=== PATIENT | male | born 1955 | race African-American/Black ===

== ENCOUNTER 2017-10-17 14:26 | Inpatient (IN) | payer OTHER ==
[2017-10-17 18:34] VITALS: BMI 23.7
--- NOTE | 2017-10-17 21:45 | HP ---
COWS - Scale Resting Pulse: 1= [place] 81-100 Sweatin=Flushed/Facial Moisture Restless Observation: 1= Difficult to Sit Still Pupil Size: 0= Normal to Room Light Bone or Joint Aches: 4=Acute Joint/Muscle Pain Runny Nose/ Eye Tearin= Runny Nose/Eyes GI Upset > 30mins: 3= Vomiting/Diarrhea (diarrhea x 2, no vomiting) Tremor Observation: 2= Slight Tremor Visible Yawning Observation: 2= >3x During Session Anxiety or Irritability: 2=Irritable/Anxious Goose Flesh Skin: 0=Smooth Skin COWS Score: 19 Admission ROS [facility] - [facility] Chief Complaint: Heroin withdrawal symptoms Allergies/Adverse Reactions: Allergies Allergy/AdvReac Type Severity Reaction Status Date / Time No Known Allergies Allergy Verified 10/17/17 20:42 History of Present Illness: 62 years old male with a long history of heroin dependence is admitted to detox. Patient states that he was in detox 20 years ago at [facility] and reports seven years of sobriety. He denies suicidal ideation at this time. He has medical history of anemia, pneumonia, depression and anxiety disorder. Exam Limitations: No Limitations - Ebola screening Have you traveled outside of the country in the last 21 days: No Have you had contact with anyone from an Ebola affected area: No Have you been sick,other than usual withdrawal symptoms: No Do you have a fever: No - Review of Systems Constitutional: Chills, Loss of Appetite, Malaise, Night Sweats, Changes in sleep, Weakness EENT: reports: Nose Congestion, Sinus Pressure Respiratory: reports: No Symptoms reported Cardiac: reports: No Symptoms Reported GI: reports: Diarrhea (x 2), Poor Appetite, Poor Fluid Intake : reports: No Symptoms Reported Musculoskeletal: reports: Back Pain, Joint Pain, Muscle Pain, Muscle Weakness Integumentary: reports: Flushing Neuro: reports: Tingling, Tremors Endocrine: reports: No Symptoms Reported Hematology: reports: Anemia Psychiatric: reports: Mood/Affect Appropiate, Orientated x3, Agitated, Anxious Other Systems: Reviewed and Negative Patient History - Patient Medical History Hx Anemia: Yes Hx Asthma: No Hx Chronic Obstructive Pulmonary Disease (COPD): No Hx Cardiac Disorders: No Hx Congestive Heart Failure: No Hx Hypertension: No Hx Hypercholesterolemia: No HX Cerebrovascular Accident: No Hx Seizures: No Hx Diabetes: No Hx Gastrointestinal Disorders: No Hx Liver Disease: No Hx Genitourinary Disorders: No Hx Sexually Transmitted Disorders: No Hx Renal Disease (ESRD): No Hx Thyroid Disease: No Hx Human Immunodeficiency Virus (HIV): No (Negative 2016) Hx Hepatitis C: No Hx Depression: Yes Hx Suicide Attempt: No Hx Bipolar Disorder: Yes Hx Schizophrenia: No - Patient Surgical History Past Surgical History: No Hx Neurologic Surgery: No Hx Cataract Extraction: No Hx Cardiac Surgery: No Hx Lung Surgery: No Hx Abdominal Surgery: No Hx Appendectomy: No Hx Cholecystectomy: No Hx Genitourinary Surgery: No Hx Section: No Hx Orthopedic Surgery: No Anesthesia Reaction: No - PPD History Previous Implant?: No (POSITIVE PPD. REQUIRES CHEST X-RAY) Implanted On Prior [facility] Admission?: No PPD to be Administered?: No - Reproductive History Patient is a Female of Child Bearing Age (11 -55 yrs old): No (MALE) - Smoking Cessation Smoking history: Current every day smoker Have you smoked in the past 12 months: Yes Aproximately how many cigarettes per day: 10 Hx Chewing Tobacco Use: No Initiated information on smoking cessation: Yes 'Breaking Loose' booklet given: 10/17/17 - Substance & Tx. History Hx Alcohol Use: No Hx Substance Use: Yes Substance Use Type: Heroin, Marijuana Hx Substance Use Treatment: Yes ([facility]) - Substances Abused Heroin Route: Inhalation Frequency: Daily Amount used: 4 bags Age of first use: 18 Date of Last Use: 10/17/17 Family Disease History - Family Disease History Family History: Denies Admission Physical Exam S - Vital Signs Vital Signs: Vital Signs - 24 hr 10/17/17 18:31 Temperature 97.6 F Pulse Rate 86 Respiratory 18 Rate Blood Pressure 150/100 - Physical General Appearance: Yes: Moderate Distress, Tremorous, Irritable, Sweating, Anxious HEENTM: Yes: EOMI, Normal ENT Inspection Respiratory: Yes: Lungs Clear, Normal Breath Sounds, No Respiratory Distress Neck: Yes: Supple Breast: Yes: Breast Exam Deferred Cardiology: Yes: Regular Rhythm, Regular Rate, S1, S2 Abdominal: Yes: Normal Bowel Sounds, Soft Genitourinary: Yes: Within Normal Limits Back: Yes: Normal Inspection Musculoskeletal: Yes: Muscle Pain, Muscle weakness Extremities: Yes: Tremors Neurological: Yes: Alert, Normal Mood/Affect, Normal Response Integumentary: Yes: Warm Lymphatic: Yes: Within Normal Limits - Diagnostic (1) Opioid dependence with withdrawal Current Visit: Yes Status: Chronic (2) Anemia Current Visit: Yes Status: Chronic Qualifiers: Anemia type: iron deficiency (3) Nicotine dependence Current Visit: Yes Status: Chronic Qualifiers: Nicotine product type: cigarettes Substance use status: uncomplicated Qualified Code(s): F17.210 - Nicotine dependence, cigarettes, uncomplicated (4) Depression Current Visit: Yes Status: Chronic Cleared for Admission [facility] - Detox or Rehab [facility] Level of Care: Medically Managed Detox Regimen/Protocol: Methadone [facility] Breath Alcohol Content Breath Alcohol Content: 0 Urine Drug Screen - Results Drug Screen Negative: No Urine Drug Screen Results: OPI-Opiates, MTD-Methadone, OXY-Oxycodone
[2017-10-17] MEDS ORDERED: MAG HYDROX/AL HYDROX/SIMETH 30 ML UNIT-DOSE CUP PO PRN (21:53)
[2017-10-17] MEDS ORDERED: MAGNESIUM CITRATE 300 ML BOTTLE PO PRN (21:53)
[2017-10-17] MEDS ORDERED: LOPERAMIDE HCL 2 MG CAPSULE PO PRN (21:53)
[2017-10-17] MEDS ORDERED: P-EPHED 60MG/TRIPROLIDI 2.5MG TABLET PO PRN (21:53)
[2017-10-17] MEDS ORDERED: METHADONE HCL 10 MG TABLET (FOR DETOX USE ONLY) PO ONE ×2 (21:53→23:00)
[2017-10-17] MEDS ORDERED: MAGNESIUM HYDROX 2400MG/30ML ORAL SUSPENSION 30 ML CUP PO PRN (21:53)
[2017-10-17] MEDS ORDERED: MENTHOL/PHENOL 1 EACH UD MM PRN (21:53)
[2017-10-17] MEDS ORDERED: IBUPROFEN 400 MG TABLET (FP) PO PRN (21:53)
[2017-10-17] MEDS ORDERED: NICOTINE POLACRILEX 2 MG GUM BC PRN (21:53)
[2017-10-17 22:59] LABS: URINE APPEARANCE CLEAR; URINE BILIRUBIN NEGATIVE (NEGATIVE); URINE BLOOD NEGATIVE (NEGATIVE); URINE COLOR DKYELLOW; URINE GLUCOSE (UA) NEGATIVE (NEGATIVE); URINE KETONE TRACE (NEGATIVE); URINE LEUK ESTERASE NEGATIVE (NEGATIVE); URINE NITRITE NEGATIVE (NEGATIVE); URINE UROBILINOGEN NEGATIVE mg/dL (0.2-1.0)
[2017-10-17 23:10] LABS: URINE PROTEIN 1+ (NEGATIVE)
[2017-10-17] MEDS: THIAMINE HCL 100 MG TABLET (FP) PO SCH (23:12)
[2017-10-17 23:16] LABS: URINE HYALINE CAST 1 /lpf; URINE MUCUS FEW
[2017-10-18] MEDS ORDERED: METHADONE HCL 10 MG TABLET (FOR DETOX USE ONLY) PO ONE (10:00)
[2017-10-18 10:06] LABS: HEMATOCRIT 34.2 % (35.4-49); HEMOGLOBIN 10.7 GM/dL (11.7-16.9); MCH 26.7 pg (25.7-33.7); MCHC 31.2 g/dl (32.0-35.9); MEAN CELL VOLUME 85.8 fl (80-96); MEAN PLT VOLUME 7.9 fl (7.5-11.1); PLATELET COUNT 310 K/MM3 (134-434); RBC 3.99 M/mm3 (4.00-5.60); RDW 13.8 % (11.9-15.9); WHITE BLOOD COUNT 6.5 K/mm3 (4.0-10.0)
[2017-10-18] MEDS: PRENATAL VITAMINS W/ FOLIC ACID TABLET (FP) PO SCH (10:38)
[2017-10-18] MEDS: NICOTINE 14 MG/24 HOURS TOPICAL PATCH TD SCH (10:38)
[2017-10-18] MEDS: diazePAM 5 MG TABLET PO PRN ×2 (10:38→22:15)
--- NOTE | 2017-10-18 11:05 | PN ---
BHS COWS - Scale Resting Pulse: 1= OR 81-100 Sweatin= Chills/Flushing Restless Observation: 3= Extraneous Movement Pupil Size: 0= Normal to Room Light Bone or Joint Aches: 4=Acute Joint/Muscle Pain Runny Nose/ Eye Tearin= Nasal Congestion GI Upset > 30mins: 1= Stomach Cramp Tremor Observation of Outstretched Hands: 1= Tremor [place], Not Seen Yawning Observation: 1= 1-2x During Session Anxiety or Irritability: 2=Irritable/Anxious Goose Flesh Skin: 0=Smooth Skin COWS Score: 15 BHS Progress Note (SOAP) Subjective: ANXIETY,SWEATS,SNEEZING,QUEEZY STOMACH. Objective: 10/18/17 11:04 Vital Signs Temperature 97.0 F L 10/18/17 09:07 Pulse Rate 85 10/18/17 09:07 Respiratory Rate 16 10/18/17 09:07 Blood Pressure 116/79 10/18/17 09:07 O2 Sat by Pulse Oximetry (%) Laboratory Last Values WBC 6.5 K/mm3 (4.0-10.0) 10/18/17 07:10 RBC 3.99 M/mm3 (4.00-5.60) L 10/18/17 07:10 Hgb 10.7 GM/dL (11.7-16.9) L 10/18/17 07:10 Hct 34.2 % (35.4-49) L 10/18/17 07:10 MCV 85.8 fl (80-96) 10/18/17 07:10 MCH 26.7 pg (25.7-33.7) 10/18/17 07:10 MCHC 31.2 g/dl (32.0-35.9) L 10/18/17 07:10 RDW 13.8 % (11.9-15.9) 10/18/17 07:10 Plt Count 310 K/MM3 (134-434) 10/18/17 07:10 MPV 7.9 fl (7.5-11.1) 10/18/17 07:10 Urine Color Dkyellow 10/17/17 22:40 Urine Appearance Clear 10/17/17 22:40 Urine pH 5.0 (5.0-8.0) 10/17/17 22:40 Ur Specific [place] 1.027 (1.001-1.035) 10/17/17 22:40 Urine Protein 1+ (NEGATIVE) H 10/17/17 22:40 Urine Glucose (UA) Negative (NEGATIVE) 10/17/17 22:40 Urine Ketones Trace (NEGATIVE) H 10/17/17 22:40 Urine Blood Negative (NEGATIVE) 10/17/17 22:40 Urine Nitrite Negative (NEGATIVE) 10/17/17 22:40 Urine Bilirubin Negative (NEGATIVE) 10/17/17 22:40 Urine Urobilinogen Negative mg/dL (0.2-1.0) 10/17/17 22:40 Ur Leukocyte Esterase Negative (NEGATIVE) 10/17/17 22:40 Urine WBC (Auto) 2 /hpf (3-5) 10/17/17 22:40 Urine RBC (Auto) 1 /hpf (0-3) 10/17/17 22:40 Hyaline Casts 1 /lpf 10/17/17 22:40 Urine Mucus Few 10/17/17 22:40 HIV 1&2 Antibody Screen Negative 10/18/17 07:00 HIV P24 Antigen Negative 10/18/17 07:00 OTHER LAB RESULTS PENDING Assessment: 10/18/17 11:05 WITHDRAWAL SX Plan: CONTINUE DETOX
[2017-10-18] MEDS ORDERED: FERROUS SO4 325 MG TABLET (FP) PO ONE (11:20)
[2017-10-18 11:37] LABS: CHLORIDE 104 mmol/L (98-107); POTASSIUM 4.1 mmol/L (3.5-5.1); SODIUM 140 mmol/L (136-145)
[2017-10-18 11:57] LABS: ALBUMIN 3.5 g/dl (3.4-5.0); ALK PHOS 68 U/L (45-117); ANION GAP 7 (8-16); BILIRUBIN,TOTAL 0.5 mg/dL (0.2-1.0); BLOOD UREA NITROGEN 11 mg/dL (7-18); CALCIUM 8.7 mg/dL (8.5-10.1); CO2 29 mmol/L (21-32); CREATININE 0.7 mg/dL (0.7-1.3); GLUCOSE,RANDOM 84 mg/dL (74-106); SGOT/AST 14 U/L (15-37); SGPT/ALT 15 U/L (12-78); TOT PROT 6.8 g/dl (6.4-8.2)
--- NOTE | 2017-10-18 13:46 | CONSULT ---
[facility] Psychiatric Consult - Data Date of interview: 10/18/17 Admission source: [facility] Identifying data: Readmission to [facility] for this 62 y/o AA male seeking detox treatment on for heroin dependence.Patient is single,a father of six,domiciled,unemployed and supported on SSI benefits. Substance Abuse History: Confirmed by patient in this interview.See details in current [facility] report : Smoking history: Current every day smoker. Have you smoked in the past 12 months: Yes. Aproximately how many cigarettes per day: 10. Hx Chewing Tobacco Use: No. Initiated information on smoking cessation: Yes. 'Breaking Loose' booklet given: 10/17/17. - Substance & Tx. History. Hx Alcohol Use: No. Hx Substance Use: Yes. Substance Use Type: Heroin, Marijuana. Hx Substance Use Treatment: Yes ([facility]). - Substances Abused. Heroin. Route: Inhalation. Frequency: Daily. Amount used: 4 bags. Age of first use: 18. Date of Last Use: 10/17/17 Medical History: Bronchial asthma and a history of positive PPD (treated as per self-report). Psychiatric History: No reported history of psychiatric hospitalizations.Patient informs of past OPD care with psychotropic medications (zoloft,seroquel,abilify).Formerly diagnosed with Anxiety Disorder and Bipolar Disorder.Mr Perla indicates that he has dropped out of psychiatric outpatient care ([facility] to [facility]).Off medications for months (three years according to patient).No reported history of suicide attempts. Physical/Sexual Abuse/Trauma History: Patient denies. Additional Comment: Urine Drug Screen Results: OPI-Opiates, MTD-Methadone, OXY- Oxycodone.Noted. Mental Status Exam - Mental Status Exam Alert and Oriented to: Time, Place, Person Cognitive Function: Grossly Intact Patient Appearance: Well Groomed Mood: Withdrawn, Hopeful Affect: Appropriate, Normal Range Patient Behavior: Fatigued, Cooperative Speech Pattern: Clear, Appropriate Voice Loudness: Normal Thought Process: Goal Oriented Thought Disorder: Not Present Hallucinations: Denies Suicidal Ideation: Denies Homicidal Ideation: Denies Insight/Judgement: Poor Sleep: Poorly, Difficulty falling asleep (requests trazodone) Appetite: Good Muscle strength/Tone: Normal Gait/Station: Normal Psychiatric Findings - Problem List ([place] 1, 2,3) (1) Opioid dependence with withdrawal Current Visit: Yes Status: Acute (2) Nicotine dependence Current Visit: Yes Status: Acute Qualifiers: Nicotine product type: cigarettes Substance use status: in withdrawal Qualified Code(s): F17.213 - Nicotine dependence, cigarettes, with withdrawal (3) Insomnia Current Visit: Yes Status: Acute - Initial Treatment Plan Initial Treatment Plan: Psychoeducation provided.Detoxification in progress.Will address insomnia with " a low dose " of trazodone at patient's request.Trazodone 25 mg po hs.Ordered.Patient is made aware of risk of priapism.Mr Perla is in agreement with this careplan.Observation.
[2017-10-18] MEDS: traZODone HCL 50 MG TABLET (FP) PO SCH (22:15)
[2017-10-18] MEDS: THIAMINE HCL 100 MG TABLET (FP) PO SCH (22:15)
--- NOTE | 2017-10-19 07:54 | EKG ---
Test Reason : Blood Pressure : / mmHG Vent. Rate : 075 BPM Atrial Rate : 075 BPM P-R Int : 206 ms QRS Dur : 078 ms QT Int : 394 ms P-R-T Axes : 073 050 054 degrees QTc Int : 439 ms NORMAL SINUS RHYTHM NORMAL ECG NO PREVIOUS ECGS AVAILABLE Confirmed by BRENNON LÓPEZ, SLAVA ([id number]) on 10/19/2017 7:53:49 AM Referred By: Confirmed By:SLAVA WILLETT MD
[2017-10-19] MEDS ORDERED: METHADONE HCL 5 MG TABLET (FOR DETOX USE ONLY) PO ONE (10:00)
[2017-10-19] MEDS: FERROUS SO4 325 MG TABLET (FP) PO SCH (10:38)
[2017-10-19] MEDS: PRENATAL VITAMINS W/ FOLIC ACID TABLET (FP) PO SCH (10:38)
[2017-10-19] MEDS: NICOTINE 14 MG/24 HOURS TOPICAL PATCH TD SCH (10:38)
[2017-10-19] MEDS: ACETAMINOPHEN 325 MG TABLET (FP) PO PRN (10:39)
--- NOTE | 2017-10-19 12:28 | PN ---
BHS COWS - Scale Resting Pulse: 1= [place] 81-100 Sweatin= Chills/Flushing Restless Observation: 3= Extraneous Movement Pupil Size: 2= Moderately Dilated Bone or Joint Aches: 4=Acute Joint/Muscle Pain Runny Nose/ Eye Tearin= Nasal Congestion GI Upset > 30mins: 0= None Tremor Observation of Outstretched Hands: 1= Tremor [place], Not Seen Yawning Observation: 2= >3x During Session Anxiety or Irritability: 2=Irritable/Anxious Goose Flesh Skin: 0=Smooth Skin COWS Score: 17 BHS Progress Note (SOAP) Subjective: ANXIETY,SWEATS,CHILLS,FATIGUE,INTERMITTENT SLEEP. Objective: 10/19/17 12:28 Vital Signs Temperature 97.9 F 10/19/17 09:54 Pulse Rate 82 10/19/17 09:54 Respiratory Rate 18 10/19/17 09:54 Blood Pressure 130/81 10/19/17 09:54 O2 Sat by Pulse Oximetry (%) Laboratory Last Values WBC 6.5 K/mm3 (4.0-10.0) 10/18/17 07:10 RBC 3.99 M/mm3 (4.00-5.60) L 10/18/17 07:10 Hgb 10.7 GM/dL (11.7-16.9) L 10/18/17 07:10 Hct 34.2 % (35.4-49) L 10/18/17 07:10 MCV 85.8 fl (80-96) 10/18/17 07:10 MCH 26.7 pg (25.7-33.7) 10/18/17 07:10 MCHC 31.2 g/dl (32.0-35.9) L 10/18/17 07:10 RDW 13.8 % (11.9-15.9) 10/18/17 07:10 Plt Count 310 K/MM3 (134-434) 10/18/17 07:10 MPV 7.9 fl (7.5-11.1) 10/18/17 07:10 Sodium 140 mmol/L (136-145) 10/18/17 07:10 Potassium 4.1 mmol/L (3.5-5.1) 10/18/17 07:10 Chloride 104 mmol/L (98-107) 10/18/17 07:10 Carbon Dioxide 29 mmol/L (21-32) 10/18/17 07:10 Anion Gap 7 (8-16) L 10/18/17 07:10 BUN 11 mg/dL (7-18) 10/18/17 07:10 Creatinine 0.7 mg/dL (0.7-1.3) 10/18/17 07:10 Creat Clearance w eGFR > 60 (>60) 10/18/17 07:10 Random Glucose 84 mg/dL (74-106) 10/18/17 07:10 Calcium 8.7 mg/dL (8.5-10.1) 10/18/17 07:10 Total Bilirubin 0.5 mg/dL (0.2-1.0) 10/18/17 07:10 AST 14 U/L (15-37) L 10/18/17 07:10 ALT 15 U/L (12-78) 10/18/17 07:10 Alkaline Phosphatase 68 U/L (45-117) 10/18/17 07:10 Total Protein 6.8 g/dl (6.4-8.2) 10/18/17 07:10 Albumin 3.5 g/dl (3.4-5.0) 10/18/17 07:10 Urine Color Dkyellow 10/17/17 22:40 Urine Appearance Clear 10/17/17 22:40 Urine pH 5.0 (5.0-8.0) 10/17/17 22:40 Ur Specific [place] 1.027 (1.001-1.035) 10/17/17 22:40 Urine Protein 1+ (NEGATIVE) H 10/17/17 22:40 Urine Glucose (UA) Negative (NEGATIVE) 10/17/17 22:40 Urine Ketones Trace (NEGATIVE) H 10/17/17 22:40 Urine Blood Negative (NEGATIVE) 10/17/17 22:40 Urine Nitrite Negative (NEGATIVE) 10/17/17 22:40 Urine Bilirubin Negative (NEGATIVE) 10/17/17 22:40 Urine Urobilinogen Negative mg/dL (0.2-1.0) 10/17/17 22:40 Ur Leukocyte Esterase Negative (NEGATIVE) 10/17/17 22:40 Urine WBC (Auto) 2 /hpf (3-5) 10/17/17 22:40 Urine RBC (Auto) 1 /hpf (0-3) 10/17/17 22:40 Hyaline Casts 1 /lpf 10/17/17 22:40 Urine Mucus Few 10/17/17 22:40 RPR Titer Nonreactive (NONREACTIVE) 10/18/17 07:10 HIV 1&2 Antibody Screen Negative 10/18/17 07:00 HIV P24 Antigen Negative 10/18/17 07:00 Assessment: 10/19/17 12:28 WITHDRAWAL SX Plan: CONTINUE DETOX
[2017-10-19] MEDS: traZODone HCL 50 MG TABLET (FP) PO SCH (22:30)
[2017-10-19] MEDS: THIAMINE HCL 100 MG TABLET (FP) PO SCH (22:30)
[2017-10-20] MEDS ORDERED: METHADONE HCL 5 MG TABLET (FOR DETOX USE ONLY) PO ONE (10:00)
[2017-10-20] MEDS: diazePAM 5 MG TABLET PO PRN (10:50)
[2017-10-20] MEDS: PRENATAL VITAMINS W/ FOLIC ACID TABLET (FP) PO SCH (10:50)
[2017-10-20] MEDS: FERROUS SO4 325 MG TABLET (FP) PO SCH (10:50)
[2017-10-20] MEDS: NICOTINE 14 MG/24 HOURS TOPICAL PATCH TD SCH (10:51)
[2017-10-20] MEDS: guaiFENesin/D-METHORPHAN HB 10 ML UNIT-DOSE CUPS PO PRN ×2 (10:52→22:37)
--- NOTE | 2017-10-20 10:56 | PN ---
BHS Progress Note (SOAP) Subjective: ANXIETY,RUNNY NOSE,DIARRHEA,INTERMITTENT SLEEP. Objective: 10/20/17 10:55 Vital Signs Temperature 97.6 F 10/20/17 09:58 Pulse Rate 97 H 10/20/17 09:58 Respiratory Rate 18 10/20/17 09:58 Blood Pressure 136/94 10/20/17 09:58 O2 Sat by Pulse Oximetry (%) Laboratory Last Values WBC 6.5 K/mm3 (4.0-10.0) 10/18/17 07:10 RBC 3.99 M/mm3 (4.00-5.60) L 10/18/17 07:10 Hgb 10.7 GM/dL (11.7-16.9) L 10/18/17 07:10 Hct 34.2 % (35.4-49) L 10/18/17 07:10 MCV 85.8 fl (80-96) 10/18/17 07:10 MCH 26.7 pg (25.7-33.7) 10/18/17 07:10 MCHC 31.2 g/dl (32.0-35.9) L 10/18/17 07:10 RDW 13.8 % (11.9-15.9) 10/18/17 07:10 Plt Count 310 K/MM3 (134-434) 10/18/17 07:10 MPV 7.9 fl (7.5-11.1) 10/18/17 07:10 Sodium 140 mmol/L (136-145) 10/18/17 07:10 Potassium 4.1 mmol/L (3.5-5.1) 10/18/17 07:10 Chloride 104 mmol/L (98-107) 10/18/17 07:10 Carbon Dioxide 29 mmol/L (21-32) 10/18/17 07:10 Anion Gap 7 (8-16) L 10/18/17 07:10 BUN 11 mg/dL (7-18) 10/18/17 07:10 Creatinine 0.7 mg/dL (0.7-1.3) 10/18/17 07:10 Creat Clearance w eGFR > 60 (>60) 10/18/17 07:10 Random Glucose 84 mg/dL (74-106) 10/18/17 07:10 Calcium 8.7 mg/dL (8.5-10.1) 10/18/17 07:10 Total Bilirubin 0.5 mg/dL (0.2-1.0) 10/18/17 07:10 AST 14 U/L (15-37) L 10/18/17 07:10 ALT 15 U/L (12-78) 10/18/17 07:10 Alkaline Phosphatase 68 U/L (45-117) 10/18/17 07:10 Total Protein 6.8 g/dl (6.4-8.2) 10/18/17 07:10 Albumin 3.5 g/dl (3.4-5.0) 10/18/17 07:10 Urine Color Dkyellow 10/17/17 22:40 Urine Appearance Clear 10/17/17 22:40 Urine pH 5.0 (5.0-8.0) 10/17/17 22:40 Ur Specific [place] 1.027 (1.001-1.035) 10/17/17 22:40 Urine Protein 1+ (NEGATIVE) H 10/17/17 22:40 Urine Glucose (UA) Negative (NEGATIVE) 10/17/17 22:40 Urine Ketones Trace (NEGATIVE) H 10/17/17 22:40 Urine Blood Negative (NEGATIVE) 10/17/17 22:40 Urine Nitrite Negative (NEGATIVE) 10/17/17 22:40 Urine Bilirubin Negative (NEGATIVE) 10/17/17 22:40 Urine Urobilinogen Negative mg/dL (0.2-1.0) 10/17/17 22:40 Ur Leukocyte Esterase Negative (NEGATIVE) 10/17/17 22:40 Urine WBC (Auto) 2 /hpf (3-5) 10/17/17 22:40 Urine RBC (Auto) 1 /hpf (0-3) 10/17/17 22:40 Hyaline Casts 1 /lpf 10/17/17 22:40 Urine Mucus Few 10/17/17 22:40 RPR Titer Nonreactive (NONREACTIVE) 10/18/17 07:10 HIV 1&2 Antibody Screen Negative 10/18/17 07:00 HIV P24 Antigen Negative 10/18/17 07:00 Assessment: 10/20/17 10:55 WITHDRAWAL SX Plan: CONTINUE DETOX
[2017-10-20] MEDS: THIAMINE HCL 100 MG TABLET (FP) PO SCH (22:35)
[2017-10-20] MEDS: traZODone HCL 50 MG TABLET (FP) PO SCH (22:36)
[2017-10-20] MEDS: ACETAMINOPHEN 325 MG TABLET (FP) PO PRN (22:37)
[2017-10-21 09:54] VITALS: BP 136/86; PULSE 80; TEMP 96.4
[2017-10-21] MEDS ORDERED: METHADONE HCL 10 MG TABLET (FOR DETOX USE ONLY) PO ONE (10:00)
[2017-10-21] MEDS: PRENATAL VITAMINS W/ FOLIC ACID TABLET (FP) PO SCH (10:41)
[2017-10-21] MEDS: NICOTINE 14 MG/24 HOURS TOPICAL PATCH TD SCH (10:41)
[2017-10-21] MEDS: FERROUS SO4 325 MG TABLET (FP) PO SCH (10:41)
--- NOTE | 2017-10-21 12:26 | DS ---
[facility] Detox Discharge Summary Admission Date: 10/17/17 Discharge Date: 10/21/17 - History Present History: Opioid Dependence Additional Comments: PT SIGNED OUT AMA FOR PERSONAL REASONS. Pertinent Past History: SEE DX BELOW - Physical Exam Results Vital Signs: Vital Signs Temperature 96.4 F L 10/21/17 09:53 Pulse Rate 80 10/21/17 09:53 Respiratory Rate 20 10/21/17 09:53 Blood Pressure 136/86 10/21/17 09:53 O2 Sat by Pulse Oximetry (%) Pertinent Admission Physical Exam Findings: WITHDRAWAL SX Laboratory Last Values WBC 6.5 K/mm3 (4.0-10.0) 10/18/17 07:10 RBC 3.99 M/mm3 (4.00-5.60) L 10/18/17 07:10 Hgb 10.7 GM/dL (11.7-16.9) L 10/18/17 07:10 Hct 34.2 % (35.4-49) L 10/18/17 07:10 MCV 85.8 fl (80-96) 10/18/17 07:10 MCH 26.7 pg (25.7-33.7) 10/18/17 07:10 MCHC 31.2 g/dl (32.0-35.9) L 10/18/17 07:10 RDW 13.8 % (11.9-15.9) 10/18/17 07:10 Plt Count 310 K/MM3 (134-434) 10/18/17 07:10 MPV 7.9 fl (7.5-11.1) 10/18/17 07:10 Sodium 140 mmol/L (136-145) 10/18/17 07:10 Potassium 4.1 mmol/L (3.5-5.1) 10/18/17 07:10 Chloride 104 mmol/L (98-107) 10/18/17 07:10 Carbon Dioxide 29 mmol/L (21-32) 10/18/17 07:10 Anion Gap 7 (8-16) L 10/18/17 07:10 BUN 11 mg/dL (7-18) 10/18/17 07:10 Creatinine 0.7 mg/dL (0.7-1.3) 10/18/17 07:10 Creat Clearance w eGFR > 60 (>60) 10/18/17 07:10 Random Glucose 84 mg/dL (74-106) 10/18/17 07:10 Calcium 8.7 mg/dL (8.5-10.1) 10/18/17 07:10 Total Bilirubin 0.5 mg/dL (0.2-1.0) 10/18/17 07:10 AST 14 U/L (15-37) L 10/18/17 07:10 ALT 15 U/L (12-78) 10/18/17 07:10 Alkaline Phosphatase 68 U/L (45-117) 10/18/17 07:10 Total Protein 6.8 g/dl (6.4-8.2) 10/18/17 07:10 Albumin 3.5 g/dl (3.4-5.0) 10/18/17 07:10 Urine Color Dky[place] 10/17/17 22:40 Urine Appearance Clear 10/17/17 22:40 Urine pH 5.0 (5.0-8.0) 10/17/17 22:40 Ur Specific [place] 1.027 (1.001-1.035) 10/17/17 22:40 Urine Protein 1+ (NEGATIVE) H 10/17/17 22:40 Urine Glucose (UA) Negative (NEGATIVE) 10/17/17 22:40 Urine Ketones Trace (NEGATIVE) H 10/17/17 22:40 Urine Blood Negative (NEGATIVE) 10/17/17 22:40 Urine Nitrite Negative (NEGATIVE) 10/17/17 22:40 Urine Bilirubin Negative (NEGATIVE) 10/17/17 22:40 Urine Urobilinogen Negative mg/dL (0.2-1.0) 10/17/17 22:40 Ur Leukocyte Esterase Negative (NEGATIVE) 10/17/17 22:40 Urine WBC (Auto) 2 /hpf (3-5) 10/17/17 22:40 Urine RBC (Auto) 1 /hpf (0-3) 10/17/17 22:40 Hyaline Casts 1 /lpf 10/17/17 22:40 Urine Mucus Few 10/17/17 22:40 RPR Titer Nonreactive (NONREACTIVE) 10/18/17 07:10 HIV 1&2 Antibody Screen Negative 10/18/17 07:00 HIV P24 Antigen Negative 10/18/17 07:00 - Treatment Hospital Course: Discharged Condition Good - Medication Discharge Medications: Ambulatory Orders NK [No Known Home Medication] 10/17/17 - Diagnosis (1) Anemia Current Visit: Yes Status: Chronic Qualifiers: Anemia type: iron deficiency (2) Nicotine dependence Current Visit: Yes Status: Acute Qualifiers: Nicotine product type: cigarettes Substance use status: in withdrawal Qualified Code(s): F17.213 - Nicotine dependence, cigarettes, with withdrawal (3) Opioid dependence with withdrawal Current Visit: Yes Status: Acute - AMA Did Patient Leave Against Medical Advice: Yes (AMA)
[2017-10-22] MEDS ORDERED: METHADONE HCL 5 MG TABLET (FOR DETOX USE ONLY) PO ONE (06:00)
== END 2017-10-21 11:25 | disposition left against medical advice (07) | DRG 770 ==
LOC: YASAS 14:26 → Y3N 20:17
PROVIDERS: ADMIT Internal Medicine; ATTEND Internal Medicine
PROC: HZ2ZZZZ Detoxification Services for Substance Abuse Treatment (ICD-10-PCS; principal; 2017-10-17)
DX: F11.23 Opioid dependence with withdrawal (principal); F17.210 Nicotine dependence, cigarettes, uncomplicated; F32.9 Major depressive disorder, single episode, unspecified; G47.00 Insomnia, unspecified; D50.8 Other iron deficiency anemias
CPT/HCPCS: 36415; 71046-TC; 80053; 81003; 81015; 85027; 86593; 87389; 93005; 93010

== ENCOUNTER 2019-12-16 13:16 | Inpatient (IN) | payer OTHER ==
[2019-12-16 14:23] VITALS: BMI 23.7
--- NOTE | 2019-12-16 16:01 | HP ---
COWS - Scale Resting Pulse: 1= MO 81-100 Sweatin= Chills/Flushing Restless Observation: 1= Difficult to Sit Still Pupil Size: 1= Pupils >than Normal Bone or Joint Aches: 1= Mild Discomfort Runny Nose/ Eye Tearin= Nasal Congestion GI Upset > 30mins: 2= Nausea/Diarrhea Tremor Observation: 1= Tremor [place], Not Seen Yawning Observation: 1= 1-2x During Session Anxiety or Irritability: 2=Irritable/Anxious Goose Flesh Skin: 0=Smooth Skin COWS Score: 12 CIWA Score - Admission Criteria [facility]ASAS Guidelines: Admission for Medically Managed Detox: Requires at least one of the followin. CIWA greater than 12 2. Seizures within the past 24 hours 3. Delirium tremens within the past 24 hours 4. Hallucinations within the past 24 hours 5. Acute intervention needed for co occurring medical disorder 6. Acute intervention needed for co occurring psychiatric disorder 7. Severe withdrawal that cannot be handled at a lower level of care (continued vomiting, continued diarrhea, abnormal vital signs) requiring intravenous medication and/or fluids 8. Admitting History and Physical - Smoking History Smoking history: Current every day smoker Have you smoked in the past 12 months: Yes Aproximately how many cigarettes per day: 5 - Alcohol/Substance Use Hx Alcohol Use: No Admission ROS [facility] Chief Complaint: Detox from heroin Allergies/Adverse Reactions: Allergies Allergy/AdvReac Type Severity Reaction Status Date / Time No Known Allergies Allergy Verified 12/16/19 14:20 History of Present Illness: Patient is a 64 years old male with a long standing history of heroin dependence who is admitted for detox. His last admission to [facility] was 10/17/17 He is admitted in no apparent distress Exam Limitations: No Limitations - Ebola screening Have you traveled outside of the country in the last 21 days: No Have you had contact with anyone from an Ebola affected area: No Have you been sick,other than usual withdrawal symptoms: No Do you have a fever: No - Review of Systems Constitutional: Chills, Loss of Appetite, Changes in sleep EENT: reports: Blurred Vision, Nose Congestion Respiratory: reports: Cough (r/t smoking) Cardiac: reports: No Symptoms Reported GI: reports: Diarrhea, Nausea, Abdominal cramping : reports: No Symptoms Reported Musculoskeletal: reports: Back Pain, Joint Pain (right knee pain, chronic), Muscle Pain Integumentary: reports: Sweating Neuro: reports: Tremors Endocrine: reports: No Symptoms Reported Hematology: reports: Anemia, Easy Bruising Psychiatric: reports: Anxious, Depressed Other Systems: Reviewed and Negative Patient History - Patient Medical History Hx Anemia: Yes Hx Asthma: No Hx Chronic Obstructive Pulmonary Disease (COPD): No Hx Cardiac Disorders: No Hx Congestive Heart Failure: No Hx Hypertension: No Hx Hypercholesterolemia: No Hx Pacemaker: No HX Cerebrovascular Accident: No Hx Seizures: No Hx Dementia: No Hx Diabetes: No Hx Gastrointestinal Disorders: No Hx Liver Disease: No Hx Genitourinary Disorders: No Hx Sexually Transmitted Disorders: No Hx Renal Disease (ESRD): No Hx Thyroid Disease: No Hx Human Immunodeficiency Virus (HIV): No Hx Hepatitis C: No Hx Depression: Yes Hx Suicide Attempt: No Hx Bipolar Disorder: Yes (has not seen psych or taken meds in a while) Hx Schizophrenia: No - Patient Surgical History Past Surgical History: No - PPD History Previous Implant?: Yes Documented Results: Positive w/o proof Implanted On Prior [facility] Admission?: No PPD to be Administered?: No - Smoking Cessation Smoking history: Current every day smoker Have you smoked in the past 12 months: Yes Aproximately how many cigarettes per day: 5 Hx Chewing Tobacco Use: No Initiated information on smoking cessation: Yes 'Breaking Loose' booklet given: 12/16/19 - Substances abused Heroin Substance route: Inhalation Frequency: Daily Amount used: 4 bags Age of first use: 15 Date of last use: 12/16/19 Admission Physical Exam [facility] - Vital Signs Vital Signs: Vital Signs - 24 hr 12/16/19 14:20 Temperature 98.6 F Pulse Rate 77 Respiratory 17 Rate Blood Pressure 142/93 - Physical General Appearance: Yes: No Apparent Distress, Disheveled HEENTM: Yes: Hearing grossly Normal, Normocephalic, Normal Voice, Other (edentulous) Respiratory: Yes: Chest Non-Tender, Lungs Clear, Normal Breath Sounds, Decreased Breath Sounds, No Respiratory Distress, No Accessory Muscle Use Neck: Yes: No masses,lesions,Nodules, Supple Breast: Yes: Breast Exam Deferred Cardiology: Yes: Regular Rhythm, Regular Rate, S1, S2 Abdominal: Yes: Normal Bowel Sounds, Soft Genitourinary: Yes: Within Normal Limits Back: Yes: Normal Inspection Musculoskeletal: Yes: Gait Steady, Muscle weakness Extremities: Yes: Tremors Neurological: Yes: legend maker II-XII NML intact, Fully Oriented, Alert, Normal Mood/Affect, Normal Response Integumentary: Yes: Clammy Lymphatic: Yes: Within Normal Limits - Diagnostic (1) Nicotine dependence Current Visit: Yes Status: Acute Qualifiers: Nicotine product type: cigarettes Substance use status: uncomplicated Qualified Code(s): F17.210 - Nicotine dependence, cigarettes, uncomplicated (2) Opioid dependence with withdrawal Current Visit: Yes Status: Acute (3) Anemia Current Visit: Yes Status: Chronic Qualifiers: Anemia type: iron deficiency (4) Depression Current Visit: Yes Status: Chronic Cleared for Admission S - Detox or Rehab [facility] Level of Care: Medically Managed Detox Regimen/Protocol: Methadone Claeared for Rehab Admission: No (admitted to detox) Breathalyzer - Breathalyzer Breathalyzer: 0 Urine Drug Screen - Test Device Lot number: [id number] Expiration date: 05/25/21 - Control Is test valid?: Yes - Results Drug screen NEGATIVE: No Urine drug screen results: THC-Marijuana, IVETTE-Cocaine, FEN-Fentanyl, MOP- Opiates, MTD-Methadone Inpatient Rehab Admission - Rehab Decision to Admit Inpatient rehab admission?: No
[2019-12-16] MEDS ORDERED: NICOTINE POLACRILEX 2 MG GUM BUC PRN (16:04)
[2019-12-16] MEDS ORDERED: MAGNESIUM HYDROX 2400MG/30ML ORAL SUSPENSION 30 ML CUP PO PRN (16:04)
[2019-12-16] MEDS ORDERED: METHOCARBAMOL 500 MG TABLET PO PRN (16:04)
[2019-12-16] MEDS ORDERED: METHADONE HCL 10 MG TABLET (FOR DETOX USE ONLY) PO ONE (16:04)
[2019-12-16] MEDS ORDERED: ACETAMINOPHEN 325 MG TABLET (FP) PO PRN ×2 (16:04)
[2019-12-16] MEDS ORDERED: NALOXONE HCL 0.4 MG/ML VIAL IM PRN (16:04)
[2019-12-16] MEDS ORDERED: MAG HYDROX/AL HYDROX/SIMETH 30 ML UNIT-DOSE CUP PO PRN (16:04)
[2019-12-16] MEDS ORDERED: MAGNESIUM CITRATE 300 ML BOTTLE PO PRN (16:04)
[2019-12-16] MEDS ORDERED: IBUPROFEN 400 MG TABLET (FP) PO PRN (16:04)
[2019-12-16] MEDS ORDERED: cloNIDine HCL 0.1 MG TABLET PO PRN (16:04)
[2019-12-16] MEDS ORDERED: MENTHOL/PHENOL 1 EACH UD MM PRN (16:04)
[2019-12-16] MEDS ORDERED: BISMUTH SUBSALICYLATE 524 MG/30 ML UD PO PRN (16:04)
--- NOTE | 2019-12-16 16:25 | PN ---
S Progress Note Note: d/w pt re: abnormal EKG , prolonged QTC of 461 ms . Pt denies cardiac symptoms at this time , states recalls an evaluation in the past . Will start on ASA prophylaxis 81 mg daily Agreeable to f/up w/ PCP / cardiology after d/c .
[2019-12-16] MEDS ORDERED: ASPIRIN COATED 81 MG TABLET.EC PO SCH (16:30)
[2019-12-16] MEDS ORDERED: MELATONIN 5 MG TABLETS PO SCH (22:00)
[2019-12-16] MEDS ORDERED: THIAMINE HCL 100 MG TABLET (FP) PO SCH (22:00)
--- NOTE | 2019-12-17 09:24 | PN ---
S Progress Note Note: pt refuses to stay to complete his detox and wants to sign out. Pt is still showing s/s of withdrawals and is encouraged to stay to prevent relapse, seizures, DTs, OD, and or loss, pt chose to sign out AMA.
--- NOTE | 2019-12-17 09:26 | DS ---
[facility] Detox Discharge Summary Admission Date: 12/16/19 - History Present History: Opioid Dependence - Physical Exam Results Vital Signs: Vital Signs Temperature 97.7 F 12/17/19 06:04 Pulse Rate 67 12/17/19 06:04 Respiratory Rate 18 12/17/19 06:04 Blood Pressure 154/87 12/17/19 06:04 O2 Sat by Pulse Oximetry (%) 98 12/17/19 06:04 Pertinent Admission Physical Exam Findings: Vital Signs Temperature 97.7 F 12/17/19 06:04 Pulse Rate 67 12/17/19 06:04 Respiratory Rate 18 12/17/19 06:04 Blood Pressure 154/87 12/17/19 06:04 O2 Sat by Pulse Oximetry (%) 98 12/17/19 06:04 aaox3 ambulating pt signed out AMA. - Treatment Hospital Course: Rehab Referral Accepted - Medication Discharge Medications: Ambulatory Orders NK [No Known Home Medication] 10/17/17 - Diagnosis (1) Nicotine dependence Current Visit: Yes Status: Chronic Qualifiers: Nicotine product type: cigarettes Substance use status: uncomplicated Qualified Code(s): F17.210 - Nicotine dependence, cigarettes, uncomplicated (2) Opioid dependence with withdrawal Current Visit: Yes Status: Chronic (3) Anemia Current Visit: Yes Status: Chronic Qualifiers: Anemia type: iron deficiency (4) Depression Current Visit: Yes Status: Chronic (5) Insomnia Current Visit: No Status: Acute - AMA Did Patient Leave Against Medical Advice: Yes
[2019-12-17 09:50] VITALS: BP 134/85; PULSE 74; TEMP 98.2
[2019-12-17 09:52] LABS: ALBUMIN 3.3 g/dl (3.4-5.0); BILIRUBIN,TOTAL 0.5 mg/dL (0.2-1); BLOOD UREA NITROGEN 12.9 mg/dL (7-18); CALCIUM 8.8 mg/dL (8.5-10.1); CREATININE 0.9 mg/dL (0.55-1.3); POTASSIUM 4.5 mmol/L (3.5-5.1); TOT PROT 6.7 g/dl (6.4-8.2)
[2019-12-17 09:55] LABS: HEMATOCRIT 33.9 % (35.4-49); HEMOGLOBIN 10.6 GM/dL (11.7-16.9); MCH 27.1 pg (25.7-33.7); MCHC 31.4 g/dl (32.0-35.9); MEAN CELL VOLUME 86.3 fl (80-96); MEAN PLT VOLUME 8.2 fl (7.5-11.1); PLATELET COUNT 298 K/MM3 (134-434); RBC 3.92 M/mm3 (4.00-5.60); WHITE BLOOD COUNT 4.7 K/mm3 (4.0-10.0)
[2019-12-17] MEDS ORDERED: NICOTINE 7 MG/24 HOURS TOPICAL PATCH TD SCH (10:00)
[2019-12-17] MEDS ORDERED: PRENATAL VITAMINS W/ FOLIC ACID TABLET (FP) PO SCH (10:00)
[2019-12-17] MEDS ORDERED: METHADONE HCL 5 MG TABLET (FOR DETOX USE ONLY) PO ONE (10:00)
--- NOTE | 2019-12-17 10:33 | EKG ---
Test Reason : Blood Pressure : / mmHG Vent. Rate : 068 BPM Atrial Rate : 068 BPM P-R Int : 198 ms QRS Dur : 080 ms QT Int : 434 ms P-R-T Axes : 070 049 116 degrees QTc Int : 461 ms NORMAL SINUS RHYTHM T WAVE ABNORMALITY, CONSIDER ANTEROLATERAL ISCHEMIA PROLONGED QT ABNORMAL ECG WHEN COMPARED WITH ECG OF 17-OCT-2017 23:58, T WAVE INVERSION NOW EVIDENT IN ANTEROLATERAL LEADS Confirmed by Nayan Michaels ([id number]) on 12/17/2019 10:32:44 AM Referred By: TONY Confirmed By:Nayan Michaels
[2019-12-18] MEDS ORDERED: METHADONE HCL 10 MG TABLET (FOR DETOX USE ONLY) PO ONE (10:00)
[2019-12-19] MEDS ORDERED: METHADONE HCL 5 MG TABLET (FOR DETOX USE ONLY) PO ONE (06:00)
== END 2019-12-17 09:45 | disposition left against medical advice (07) | DRG 770 ==
LOC: YASAS 13:16 → Y6N 14:55
PROVIDERS: ADMIT Allergy & Immunology; ATTEND Allergy & Immunology
PROC: HZ2ZZZZ Detoxification Services for Substance Abuse Treatment (ICD-10-PCS; principal; 2019-12-16)
DX: F11.23 Opioid dependence with withdrawal (principal); F17.210 Nicotine dependence, cigarettes, uncomplicated; F31.9 Bipolar disorder, unspecified; G47.00 Insomnia, unspecified; D50.9 Iron deficiency anemia, unspecified; R94.31 Abnormal electrocardiogram [ECG] [EKG]
CPT/HCPCS: 36415; 80053; 85027; 93005; 93010

== ENCOUNTER 2021-05-25 09:03 | Inpatient (IN) | payer OTHER ==
[2021-05-25 09:44] VITALS: BMI 23.3
[2021-05-25] MEDS ORDERED: BISMUTH SUBSALICYLATE 524 MG/30 ML PO PRN (10:10)
[2021-05-25] MEDS ORDERED: MENTHOL/PHENOL 1 EACH UD MM PRN (10:10)
[2021-05-25] MEDS ORDERED: ACETAMINOPHEN 325 MG TABLET (FP) PO PRN (10:10)
[2021-05-25] MEDS ORDERED: IBUPROFEN 400 MG TABLET (FP) PO PRN (10:10)
[2021-05-25] MEDS ORDERED: MAG HYDROX/AL HYDROX/SIMETH 30 ML UNIT-DOSE CUP PO PRN (10:10)
[2021-05-25] MEDS ORDERED: NICOTINE 10 MG CARTRIDGE (INHALER) IH PRN (10:10)
[2021-05-25] MEDS ORDERED: ONDANSETRON *ODT* 4 MG TABLET SL PRN (10:10)
[2021-05-25] MEDS ORDERED: clonazePAM 0.5 MG ODT TABLETS SL PRN (10:10)
[2021-05-25] MEDS ORDERED: MAGNESIUM HYDROX 2400MG/30ML ORAL SUSPENSION 30 ML CUP PO PRN (10:10)
[2021-05-25] MEDS ORDERED: MAGNESIUM CITRATE 300 ML BOTTLE PO PRN (10:10)
[2021-05-25] MEDS ORDERED: methaDONE HCL 10 MG TABLET (FOR DETOX USE ONLY) PO ONE (10:30)
[2021-05-25] MEDS: cloNIDine HCL 0.1 MG TABLET PO PRN (11:57)
[2021-05-25] MEDS: METHOCARBAMOL 500 MG TABLET PO PRN (11:58)
[2021-05-25] MEDS: PRENATAL VITAMINS W/ FOLIC ACID TABLET (FP) PO SCH (11:58)
[2021-05-25] MEDS: NICOTINE 7 MG/24 HOURS TOPICAL PATCH TD SCH (11:58)
[2021-05-25] MEDS: hydrOXYzine PAMOATE 25 MG CAPSULE (FP) PO SCH ×3 (13:22→22:10)
[2021-05-25 14:05] LABS: HEMATOCRIT 37.1 % (35.4-49); MCH 27.8 pg (25.7-33.7); MCHC 32.3 g/dl (32.0-35.9); MEAN CELL VOLUME 86.1 fl (80-96); MEAN PLT VOLUME 8.1 fl (7.5-11.1); PLATELET COUNT 355 10^3/uL (134-434); RBC 4.31 M/mm3 (4.00-5.60); RDW 14.6 % (11.9-15.9); WHITE BLOOD COUNT 5.7 K/mm3 (4.0-10.0)
[2021-05-25 14:24] LABS: ALBUMIN 4.2 g/dl (3.4-5.0)
[2021-05-25 14:26] LABS: BLOOD UREA NITROGEN 13.8 mg/dL (7-18); CALCIUM 9.5 mg/dL (8.5-10.1)
[2021-05-25 14:27] LABS: BILIRUBIN,TOTAL 0.9 mg/dL (0.2-1); CREATININE 1.1 mg/dL (0.55-1.3)
[2021-05-25] MEDS ORDERED: MELATONIN 5 MG TABLETS PO SCH (22:00)
[2021-05-25] MEDS: SUVOREXANT 10 MG TABLET PO PRN (22:09)
[2021-05-25] MEDS: THIAMINE HCL 100 MG TABLET (FP) PO SCH (22:10)
[2021-05-26] MEDS: hydrOXYzine PAMOATE 25 MG CAPSULE (FP) PO SCH (05:49)
[2021-05-26] MEDS ORDERED: hydrOXYzine PAMOATE 25 MG CAPSULE (FP) PO PRN (08:06)
[2021-05-26] MEDS ORDERED: methaDONE HCL 10 MG TABLET (FOR DETOX USE ONLY) ONE (09:03)
[2021-05-26] MEDS ORDERED: diazePAM 5 MG TABLET PO PRN (10:23)
[2021-05-26] MEDS: cloNIDine HCL 0.1 MG TABLET PO PRN (10:29)
[2021-05-26] MEDS ORDERED: CYPROHEPTADINE HCL 4 MG TABLET PO SCH (11:00)
[2021-05-26] MEDS: diazePAM 5 MG TABLET PO PRN ×2 (11:03→17:08)
[2021-05-26] MEDS: NICOTINE 7 MG/24 HOURS TOPICAL PATCH TD SCH (11:05)
[2021-05-26] MEDS: PRENATAL VITAMINS W/ FOLIC ACID TABLET (FP) PO SCH (11:05)
[2021-05-26] MEDS: THIAMINE HCL 100 MG TABLET (FP) PO SCH (22:05)
[2021-05-26] MEDS: SUVOREXANT 10 MG TABLET PO PRN (22:07)
[2021-05-27] MEDS: cloNIDine HCL 0.1 MG TABLET PO PRN ×2 (06:22→17:51)
[2021-05-27] MEDS: METHOCARBAMOL 500 MG TABLET PO PRN ×2 (06:22→22:24)
[2021-05-27] MEDS: ACETAMINOPHEN 325 MG TABLET (FP) PO PRN (06:23)
[2021-05-27] MEDS ORDERED: MEGESTROL ACETATE 20 MG TABLET PO SCH (10:00)
[2021-05-27] MEDS ORDERED: VITAMIN B COMP W-C 1 EA TABLET (NEPHRO-VITE) PO SCH (10:00)
[2021-05-27] MEDS ORDERED: methaDONE HCL 10 MG TABLET (FOR DETOX USE ONLY) PO ONE (10:00)
[2021-05-27] MEDS: diazePAM 5 MG TABLET PO PRN ×2 (10:20→17:51)
[2021-05-27] MEDS: NICOTINE 7 MG/24 HOURS TOPICAL PATCH TD SCH (10:22)
[2021-05-27] MEDS: PRENATAL VITAMINS W/ FOLIC ACID TABLET (FP) PO SCH (10:22)
[2021-05-27] MEDS: VITAMIN B COMPLEX W/C COMBO TABLET (FP) PO SCH (10:23)
[2021-05-27] MEDS ORDERED: LOPERAMIDE HCL 2 MG CAPSULE PO PRN (10:40)
[2021-05-27] MEDS: SUVOREXANT 10 MG TABLET PO PRN (22:23)
[2021-05-27] MEDS: THIAMINE HCL 100 MG TABLET (FP) PO SCH (22:23)
[2021-05-28] MEDS: diazePAM 5 MG TABLET PO PRN (05:38)
[2021-05-28] MEDS: ACETAMINOPHEN 325 MG TABLET (FP) PO PRN (07:42)
[2021-05-28] MEDS ORDERED: methaDONE HCL 10 MG TABLET (FOR DETOX USE ONLY) ONE (09:09)
[2021-05-28 09:40] VITALS: BP 158/98; PULSE 71; TEMP 97.7
[2021-05-28] MEDS: VITAMIN B COMPLEX W/C COMBO TABLET (FP) PO SCH (10:20)
[2021-05-28] MEDS: PRENATAL VITAMINS W/ FOLIC ACID TABLET (FP) PO SCH (10:20)
[2021-05-28] MEDS: NICOTINE 7 MG/24 HOURS TOPICAL PATCH TD SCH (10:21)
[2021-05-29] MEDS ORDERED: methaDONE HCL 10 MG TABLET (FOR DETOX USE ONLY) PO ONE (10:00)
== END 2021-05-28 10:28 | disposition left against medical advice (07) | DRG 894 ==
LOC: YASAS 09:03 → Y3N 10:01
PROVIDERS: ADMIT Allergy & Immunology; ATTEND Allergy & Immunology
PROC: HZ2ZZZZ Detoxification Services for Substance Abuse Treatment (ICD-10-PCS; principal; 2021-05-25)
DX: F11.23 Opioid dependence with withdrawal (principal); F19.282 Other psychoactive substance dependence with psychoactive substance-induced sleep disorder; F13.10 Sedative, hypnotic or anxiolytic abuse, uncomplicated; F17.210 Nicotine dependence, cigarettes, uncomplicated; F19.24 Other psychoactive substance dependence with psychoactive substance-induced mood disorder; F39 Unspecified mood [affective] disorder; D50.9 Iron deficiency anemia, unspecified; K40.90 Unilateral inguinal hernia, without obstruction or gangrene, not specified as recurrent; R76.11 Nonspecific reaction to tuberculin skin test without active tuberculosis; Z56.0 Unemployment, unspecified
CPT/HCPCS: 36415; 71046-TC-FY; 80053; 85027; 86780; C9803; J0735; U0003; U0005

== ENCOUNTER 2024-02-04 09:43 | Inpatient (IN) | payer OTHER ==
[2024-02-04 10:59] VITALS: BMI 20.9
[2024-02-04] MEDS ORDERED: ONDANSETRON *ODT* 4 MG TABLET SL PRN (12:17)
[2024-02-04] MEDS ORDERED: NALOXONE HCL (KLOXXADO) 8 MG SPRAY NS PRN (12:17)
[2024-02-04] MEDS ORDERED: IBUPROFEN 400 MG TABLET (FP) PO PRN (12:17)
[2024-02-04] MEDS ORDERED: POLYETHYLENE GLYCOL (HEALTHYLAX) 3350 17 GM PACKET PO PRN (12:17)
[2024-02-04] MEDS ORDERED: LOPERAMIDE HCL 2 MG CAPSULE PO PRN (12:17)
[2024-02-04] MEDS ORDERED: guaiFENesin 600 MG TABLET.ER (FP) PO PRN (12:17)
[2024-02-04] MEDS ORDERED: BENZONATATE 200 MG CAPSULE PO PRN (12:17)
[2024-02-04] MEDS ORDERED: NICOTINE POLACRILEX 2 MG LOZENGE BC PRN (12:17)
[2024-02-04] MEDS ORDERED: NICOTINE POLACRILEX 2 MG GUM BUC PRN (12:17)
[2024-02-04] MEDS ORDERED: MAG HYDROX/AL HYDROX/SIMETH 30 ML UNIT-DOSE CUP PO PRN (12:17)
[2024-02-04] MEDS ORDERED: BENZOCAINE/MENTHOL (CHLORASEPTIC ) LOZENGE MM PRN (12:17)
[2024-02-04] MEDS ORDERED: MAGNESIUM HYDROX 2400MG/30ML ORAL SUSPENSION 30 ML CUP PO PRN (12:17)
[2024-02-04] MEDS ORDERED: NALOXONE HCL 0.4 MG/ML VIAL IM PRN (12:17)
[2024-02-04] MEDS ORDERED: hydrOXYzine PAMOATE 25 MG CAPSULE (FP) PO PRN (12:17)
[2024-02-04] MEDS ORDERED: BISMUTH SUBSALICYLATE 524 MG/30 ML PO PRN (12:17)
[2024-02-04] MEDS ORDERED: HYDROCHLOROTHIAZIDE 12.5 MG CAPSULE (FP) ONE (12:36)
[2024-02-04] MEDS ORDERED: amLODIPine BESYLATE 5 MG TABLET (FP) ONE (12:36)
[2024-02-04] MEDS ORDERED: methaDONE HCL 10 MG TABLET (FOR DETOX USE ONLY) ONE (12:36)
[2024-02-04] MEDS: methaDONE HCL 10 MG TABLET PO ONE (12:40)
[2024-02-04] MEDS: amLODIPine BESYLATE 10 MG TABLET (FP) PO SCH (12:48)
[2024-02-04] MEDS: HYDROCHLOROTHIAZIDE 25 MG TABLET (FP) PO SCH (12:48)
[2024-02-04] MEDS: cloNIDine HCL 0.1 MG TABLET PO SCH (13:40)
[2024-02-04] MEDS ORDERED: methaDONE HCL 10 MG TABLET PO PRN (14:19)
[2024-02-04] MEDS: MELATONIN 5 MG TABLETS PO SCH (22:43)
[2024-02-04] MEDS: THIAMINE 100 MG TABLET PO SCH (22:43)
[2024-02-05] MEDS: IBUPROFEN 600 MG TABLET (FP) PO PRN (05:51)
[2024-02-05] MEDS: methaDONE 40 MG, methaDONE 10 MG PO ONE (10:07)
[2024-02-05] MEDS: PRENATAL VITAMINS W/ FOLIC ACID TABLET (FP) PO SCH (10:09)
[2024-02-05 10:45] LABS: POTASSIUM 3.5 mmol/L (3.5-5.1)
[2024-02-05 10:52] LABS: HEMATOCRIT 40.5 % (35.4-49); HEMOGLOBIN 13.3 GM/dL (11.7-16.9); MCH 27.5 pg (25.7-33.7); MCHC 32.8 g/dl (32.0-35.9); MEAN CELL VOLUME 83.7 fl (80-96); MEAN PLT VOLUME 8.2 fl (7.5-11.1); PLATELET COUNT 317 10^3/uL (134-434); RBC 4.84 M/mm3 (4.00-5.60); RDW 15.2 % (11.9-15.9); WHITE BLOOD COUNT 4.2 K/mm3 (4.0-10.0)
[2024-02-05 10:59] LABS: BLOOD UREA NITROGEN 20.9 mg/dL (7-18); CALCIUM 9.1 mg/dL (8.5-10.1)
[2024-02-05 11:01] LABS: ALBUMIN 3.5 g/dl (3.4-5.0); TOT PROT 7.3 g/dl (6.4-8.2)
[2024-02-05 11:02] LABS: CREATININE 1.2 mg/dL (0.55-1.3)
[2024-02-05 11:47] LABS: HIV INTERPRETATION NEGATIVE (NEGATIVE)
[2024-02-05] MEDS: DICYCLOMINE HCL 10 MG CAPSULE PO PRN (17:31)
[2024-02-05] MEDS: METHOCARBAMOL 500 MG TABLET PO PRN (22:39)
[2024-02-06] MEDS: methaDONE 40 MG, methaDONE 20 MG PO ONE (09:54)
[2024-02-06] MEDS: cloNIDine HCL 0.1 MG TABLET PO PRN (11:00)
[2024-02-07] MEDS: methaDONE 40 MG, methaDONE 30 MG PO ONE (10:02)
[2024-02-07] MEDS: methaDONE 40 MG, methaDONE 20 MG PO ONE (10:18)
[2024-02-07] MEDS: BISACODYL 10 MG SUPP.RECT PR ONE (11:25)
[2024-02-08] MEDS: ACETAMINOPHEN 325 MG TABLET (FP) PO PRN (06:07)
[2024-02-08] MEDS: methaDONE HCL 10 MG TABLET PO ONE (09:31)
[2024-02-08] MEDS ORDERED: methaDONE HCL 40 MG DISPERSABLE TABLET PO ONE (10:00)
[2024-02-09] MEDS: methaDONE 40 MG, methaDONE 20 MG PO ONE (09:57)
[2024-02-09] MEDS ORDERED: methaDONE 80 MG, methaDONE 10 MG PO ONE (10:00)
[2024-02-09 10:40] VITALS: BP 134/77; PULSE 83; RESP 18; TEMP 97.8
== END 2024-02-09 10:22 | disposition home or self-care (01) | DRG 897 ==
LOC: YASAS 09:43 → Y6N 12:12
PROVIDERS: ADMIT Allergy & Immunology; ATTEND Surgery
PROC: HZ2ZZZZ Detoxification Services for Substance Abuse Treatment (ICD-10-PCS; principal; 2024-02-04)
DX: F11.23 Opioid dependence with withdrawal (principal); F19.282 Other psychoactive substance dependence with psychoactive substance-induced sleep disorder; F12.20 Cannabis dependence, uncomplicated; F17.210 Nicotine dependence, cigarettes, uncomplicated; F19.24 Other psychoactive substance dependence with psychoactive substance-induced mood disorder; F39 Unspecified mood [affective] disorder; I10 Essential (primary) hypertension; I49.1 Atrial premature depolarization; Z86.11 Personal history of tuberculosis
CPT/HCPCS: 36415; 80053; 80305; 80307; 85027; 86780; 86803; 87389; 93005; 93010